=== PATIENT | male | born 1995 | race Caucasian/White ===

== ENCOUNTER 2023-02-08 03:39 | Emergency (ER) | payer BC, OTHER ==
[~2023-02-08] VITALS: Ht 170.2 cm; Wt 117.0 kg
[2023-02-08 06:10] VITALS: BP 145/87
== END 2023-02-08 06:11 | disposition home or self-care (01) ==
LOC: M ED 03:39
DX: S50.12XA Contusion of left forearm, initial encounter (principal); W20.8XXA Other cause of strike by thrown, projected or falling object, initial encounter; Y92.009 Unspecified place in unspecified non-institutional (private) residence as the place of occurrence of the external cause; L25.9 Unspecified contact dermatitis, unspecified cause